=== PATIENT | female | born 1980 | race Caucasian/White ===

== ENCOUNTER 2019-01-23 23:18 | Emergency (ER) | payer MEDICARE, OTHER ==
[~2019-01-23] VITALS: Ht 165.1 cm; Wt 63.5 kg
[2019-01-23] MEDS ORDERED: OXYCODONE/APAP 5-325 MG TABLET PO ONE (23:30)
[2019-01-23] MEDS ORDERED: NEOMY/BACITRA/POLYMYXIN B OINT UD PACKET TP ONE ×2 (23:30→23:35)
[2019-01-23] MEDS ORDERED: OXYCODONE/APAP 5-325 MG TABLET ONE (23:35)
[2019-01-23 23:51] VITALS: BP 124/77
--- NOTE | 2019-01-23 23:52 | NUR ---
Patient discharged to home in stable conditon. Written and verbal after care instructions given. Patient verbalizes understanding of instructions. Pt left ER with cousin who will drive home. TYE wrap applied to left ankle. Crutches provided. Return demonstration regarding crutch use. All belongings with pt. No acute distress noted. Vital signs stable.
== END 2019-01-23 23:52 | disposition home or self-care (01) ==
LOC: ER 23:18
DX: S90.812A Abrasion, left foot, initial encounter (principal); M79.674 Pain in right toe(s); M54.41 Lumbago with sciatica, right side; F41.9 Anxiety disorder, unspecified; Z88.0 Allergy status to penicillin; Z88.5 Allergy status to narcotic agent; Z91.040 Latex allergy status; X50.1XXA Overexertion from prolonged static or awkward postures, initial encounter; Y93.89 Activity, other specified; Y92.89 Other specified places as the place of occurrence of the external cause; Y99.8 Other external cause status
CPT/HCPCS: 73610; 73660; A4663